=== PATIENT | female | born 2000 | race Caucasian/White ===

== ENCOUNTER → 2023-05-09 | Outpatient (REF) | LOC: M LAB 11:34 | PROVIDERS: ATTEND Nurse Practitioner Adult Health | DX: Z02.1 Encounter for pre-employment examination (principal) ==

== ENCOUNTER → 2023-06-20 | Outpatient (REF) | LOC: M EMP 07:39 | PROVIDERS: ATTEND Family Medicine | DX: Z20.822 Contact with and (suspected) exposure to COVID-19 (principal) ==

== ENCOUNTER → 2023-08-12 | Outpatient (REF) ==
[2023-08-12 12:49] LABS: RSV AMPLIFICATION NEGATIVE (NEGATIVE)
== END ==
LOC: M EMP 09:48
PROVIDERS: ATTEND Family Medicine
DX: Z11.52 Encounter for screening for COVID-19 (principal)

== ENCOUNTER → 2023-10-05 | Outpatient (REF) | LOC: M EMP 10:28 | PROVIDERS: ATTEND Family Medicine | DX: Z11.52 Encounter for screening for COVID-19 (principal) ==

== ENCOUNTER → 2023-11-09 | Outpatient (REF) | payer OTHER | LOC: M SFHCDERM 16:41 | PROVIDERS: ATTEND Physician Assistant | DX: L70.0 Acne vulgaris (principal); Z53.9 Procedure and treatment not carried out, unspecified reason ==

== ENCOUNTER → 2023-12-07 | Outpatient (REF) | payer OTHER | LOC: M SFHCDERM 14:45 | PROVIDERS: ATTEND Physician Assistant | DX: L70.0 Acne vulgaris (principal) ==

== ENCOUNTER → 2024-01-30 | Outpatient (REF) | payer OTHER | LOC: M SFHCDERM 16:40 | PROVIDERS: ATTEND Physician Assistant | DX: L70.0 Acne vulgaris (principal); Z53.9 Procedure and treatment not carried out, unspecified reason ==

== ENCOUNTER → 2024-03-22 | Outpatient (REF) | LOC: M EMP 16:00 | PROVIDERS: ATTEND Family Medicine | DX: Z11.52 Encounter for screening for COVID-19 (principal) ==

== ENCOUNTER → 2024-07-17 | Outpatient (REF) | payer OTHER | LOC: M SFHCDERM 17:59 | PROVIDERS: ATTEND Physician Assistant | DX: L57.0 Actinic keratosis (principal) ==

== ENCOUNTER → 2024-10-29 | Outpatient (REF) | LOC: M EMP 09:37 | PROVIDERS: ATTEND Family Medicine | DX: Z11.52 Encounter for screening for COVID-19 (principal) ==